=== PATIENT | male | born 1940 | race Hispanic/Latino ===

== ENCOUNTER → 2016-10-26 | Outpatient (REF) | payer MEDICARE, MEDICAID ==
[~2016-10-26] MED LIST: /SENOSTA PO; AMLO10TA PO; AMLO10TA2 PO; AMLO25TA PO; ASPI325T PO; ASPI32ECTA PO; ATOR40TA PO; DONETAB6 PO; GABA-282 PO; GABA-283 PO; GABA100C PO; GLIM4TAB PO; HUMA100I SC; INSUDET SC; INSUH10VL SC; INSUHUMDS SC; INSULADS SC; INSULANT SC; ISOS120T4 PO; ISOS20TA2 PO; ISOS60TA2 PO; LOSA100T PO; LOSA100T36 PO; METO50TA2 PO; NITR4TASL SL; OMEP20CA3 PO; PERCOCET PO; TAMS0.4C2 PO; TOPR25TA PO; TYLE325T5 PO; tylenol
== END ==
LOC: M SFHCLERA 13:46
PROVIDERS: ATTEND Family Medicine
DX: E11.42 Type 2 diabetes mellitus with diabetic polyneuropathy (principal); Z53.8 Procedure and treatment not carried out for other reasons

== ENCOUNTER 2016-11-09 17:59 | Inpatient (IN) | payer MEDICARE, MEDICAID ==
[~2016-11-09] VITALS: Ht 177.8 cm; Wt 89.1 kg
[2016-11-09 18:46] LABS: BASO # 0.1 K/mm3 (0.0-0.2); BASO % 1.1 % (0.0-1.0); EOS # 0.3 K/mm3 (0.0-0.50); EOS % 4.2 % (0.0-3.0); LARGE UNSTAINED CELL # 0.2 K/mm3 (0.0-0.4); LYMPH # 2.2 K/mm3 (1.5-4.5); LYMPH % 27.6 % (24.0-44.0); MEAN CORPUSCULAR HEMOGLOBIN 32.4 pg (27.0-33.0); MEAN CORPUSCULAR VOLUME 86.6 fl (80.0-96.0); MONO # 0.5 K/mm3 (0.0-0.8); NEUTROPHILS # 4.8 K/mm3 (1.8-7.7); NEUTROPHILS % 59.1 % (36.0-66.0); PLATELET COUNT, AUTOMATED 182 k/mm3 (150-450); RED CELL DISTRIBUTION WIDTH 12.9 % (11.5-14.5); WHITE BLOOD COUNT 8.1 K/mm3 (4.0-10.0)
[2016-11-09 18:50] LABS: MEAN CORPUSCULAR HGB CONC 37.4 g/dl (32.0-36.5)
[2016-11-09 19:07] LABS: CALCIUM LEVEL 8.8 MG/DL (8.8-10.2); CREATININE FOR GFR 1.82 MG/DL (0.70-1.30); GLOMERULAR FILTRATION RATE 38.9 (>42); MAGNESIUM LEVEL 2.4 MG/DL (1.8-2.4); PHOSPHORUS LEVEL 4.5 MG/DL (2.5-4.9); POTASSIUM SERUM 4.1 MEQ/L (3.5-5.1)
[2016-11-09] MEDS ORDERED: ASPI1TAB PO (20:40)
[2016-11-09] MEDS ORDERED: JANU100T PO (20:42)
[2016-11-09] MEDS ORDERED: TIZA2CAP3 PO (20:42)
[2016-11-09] MEDS ORDERED: RANO5TAB PO (20:42)
[2016-11-09] MEDS ORDERED: NS 500 ML IV ONE (20:45)
[2016-11-09] MEDS: GABAPENTIN 300 MG CAP PO SCH (21:00)
[2016-11-09] MEDS: HumaLOG INSULIN (NovoLOG) PER UNIT SC SCH (21:00)
[2016-11-09] MEDS ORDERED: GABAPENTIN 300 MG CAP PO ONE (21:00)
[2016-11-09] MEDS ORDERED: INSULANT SC (21:25)
[2016-11-09] MEDS ORDERED: GABA-282 PO (21:27)
[2016-11-09] MEDS ORDERED: ASPI81TA7 PO (21:28)
[2016-11-09] MEDS ORDERED: DEXTROSE 50% 50 ML SYRINGE IV PRN (22:15)
[2016-11-09] MEDS ORDERED: GLUCAGON FOR INJ 1 MG VIAL (J1610) SC PRN (22:15)
[2016-11-09] MEDS ORDERED: GLUCOSE 4 GM CHEW TABLET PO PRN (22:15)
--- NOTE | 2016-11-09 22:45 | HPEPDOC ---
General Date of Admission Nov 09, 2016 at 21:03 Primary Care Physician: GILLIAN MARTINS MD Attending Physician: LIZZETTE HANSEN MD Chief Complaint The patient is a 76-year-old male admitted with a reason for visit of Syncope. 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 Due to language barriers, his daughter and son were present in the room translated for him. He was sitting down in his chair when he started to get sweaty. His daughter helped him to the ground where he threw up and then lost consciousness. She became stiff, his eyes were closed, he did not bite his tongue, and he did not lose bowel or bladder function. He regained consciousness and had a neck/headache. This episode was similar to the past 6 episodes he has had in the past 2 years. This is the first time this has happened in the past year. He stated that he felt some left chest pressure but the EKG was unchanged from previous admissions. He has not been eating well for the past couple days, and his daughter reports a low food and water intake. He denied fever, night sweats, travel, sick contacts , and nausea. He did complain of chills which is not new. Home Medications Scheduled Aspirin (Aspirin) 81 Mg Tab, 81 MG PO DAILY, (Reported) Atorvastatin Calcium (Atorvastatin Calcium) 40 Mg Tab, 40 MG PO QHS, (Reported) Gabapentin (Gabapentin) 300 Mg Cap, 300 MG PO TID, (Reported) Insulin Aspart (Novolog) 100 U/Ml Inj, 0 SC ASDIRECTED, (Reported) AC Per Sliding Scale Insulin Glargine (Lantus) 1 Units/0.01 Ml Susp, 30 UNITS SC DAILY, (Reported) Insulin Glargine (Lantus) 1 Units/0.01 Ml Susp, 40 UNITS SC QHS, (Reported) Isosorbide Mononitrate (Isosorbide Mononitrate ER) 120 Mg Tab, 60 MG PO DAILY, ( Reported) Ranolazine (Ranexa) 500 Mg Renay, 500 MG PO DAILY, (Reported) Sitagliptin Phosphate (Juluvia) 100 Mg Tab, 100 MG PO DAILY, (Reported) Tizanidine Hydrochloride (Tizanidine HCl) 2 Mg Cap, 2 MG PO DAILY, (Reported) Allergies Coded Allergies: No Known Drug Allergy (Verified Allergy, Unknown, 01/19/13) Past Medical History Medical History Type 2 diabetes mellitus HTN Hyperlipidemia Diabetic neuropathy CAD (quintuple bypass, stent 1997) Hepatitis C Fatty liver stage F3-4 Syphillis Surgical History Open heart quintuple bypass 1997 Cholecystectomy 2005 Left foot partial amputation 2009 Amputated 4th right toe 1999 Right lower leg bypass 2002 Stents in both legs 2011 Bilater cataract 2011 Family History Significant Family History: Noncontributory Social History * Smoker: Denies Alcohol: Denies (Quit 20 years ago) Drugs: denies Recent Travel/Sick Contacts: Denies: Recent travel, Recent sick contacts Psychosocial History: No pertinent psych hx 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 Never smoker. No travel outside the or to the [facility]. Review of Symptoms Constitutional: Reports: Chills, Denies: Fever, Night Sweats Eyes: Denies: Vision change ENT: Reports: Head Aches (chronic) Skin: Denies: Rash, Lesions, Jaundice Pulmonary: Reports: Cough (chronic dry), Denies: Dyspnea, Pleuritic Chest Pain Cardiovascular: Reports: Chest Pain (left pressure), Denies: Palpitations Gastrointestinal: Reports: Vomiting, Abdominal Pain (chronic since gallbladder surgery), Denies: Nausea, Diarrhea, Constipation, Melena, Hematochezia Genitourinary: Denies: Frequency, Hematuria Musculoskeletal: Reports: Neck Pain (chronic) Neurological: Denies: Weakness, Numbness Psych: Reports: Mood Normal Physical Examination General Exam: Positive: Alert, Cooperative, No Acute Distress Eye Exam: Positive: PERRLA, EOMI ENT Exam: Positive: Atraumatic, Tongue Midline Neck Exam: Negative: JVD Chest Exam: Positive: Clear to auscultation, Normal air movement, Negative: Rales, Rhonchi, Wheezing Heart Exam: Positive: Rate Normal (diminished heart sounds), Negative: Gallops, Murmurs, Rubs Abdomen Exam: Positive: Normal bowel sounds, Soft, Negative: Tenderness Extremity Exam: Negative: Edema Skin Exam: Negative: Rash, Lesion Neuro Exam: Positive: Normal Speech Psych Exam: Positive: Mental status NL, Negative: Anxiety Vital Signs Vital Signs Date Time Temp Pulse Resp B/P Pulse Ox O2 Delivery O2 Flow Rate FiO2 11/09/16 20:46 Room Air 11/09/16 19:52 58 174/81 68 151/68 67 137/65 11/09/16 18:49 97.0 20 99 Laboratory Data Labs 24H Laboratory Tests 2 11/09/16 18:23: Anion Gap 7L, White Blood Count 8.1, Red Blood Count 4.29L, Hemoglobin 13.9L, Hematocrit 37.2L, Mean Corpuscular Volume 86.6, Mean Corpuscular Hemoglobin 32.4 , Mean Corpuscular Hemoglobin Concent 37.4H, Red Cell Distribution Width 12.9, Platelet Count 182, Neutrophils (%) (Auto) 59.1, Lymphocytes (%) (Auto) 27.6, Monocytes (%) (Auto) 6.0H, Eosinophils (%) (Auto) 4.2H, Basophils (%) (Auto) 1.1H, Neutrophils # (Auto) 4.8, Lymphocytes # (Auto) 2.2, Monocytes # (Auto) 0.5 , Eosinophils # (Auto) 0.3, Basophils # (Auto) 0.1, Blood Urea Nitrogen 21H, Creatinine 1.82H, Sodium Level 137, Potassium Level 4.1, Chloride Level 101, Carbon Dioxide Level 29, Calcium Level 8.8, Phosphorus Level 4.5, Total Creatine Kinase 284, Creatine Kinase MB 3.7H, Creatine Kinase MB Relative Index 1.30, Glomerular Filtration Rate 38.9L, Large Unclassified Cells # 0.2, Large Unclassified Cells % 2.0, Magnesium Level 2.4, Troponin I 0.04 11/09/16 18:28: Bedside Glucose (Misc Panel) 158H CBC/BMP Laboratory Tests 11/09/16 18:23 Calcium Level 8.8, Phosphorus Level 4.5, Total Creatine Kinase 284, Red Blood Count 4.29 L, Mean Corpuscular Volume 86.6, Mean Corpuscular Hemoglobin 32.4, Mean Corpuscular Hemoglobin Concent 37.4 H, Red Cell Distribution Width 12.9, Neutrophils (%) (Auto) 59.1, Lymphocytes (%) (Auto) 27.6, Monocytes (%) (Auto) 6.0 H, Eosinophils (%) (Auto) 4.2 H, Basophils (%) (Auto) 1.1 H, Neutrophils # ( Auto) 4.8, Lymphocytes # (Auto) 2.2, Monocytes # (Auto) 0.5, Eosinophils # (Auto ) 0.3, Basophils # (Auto) 0.1 Problems (1) Syncope and collapse Status: Acute Response to Treatment: Stable Discussed With: Patient, Family with Pt Consent Problem Text: History of syncope (6 times in the past 2 years). Cardiac enzymes not elevated, will continue to follow. EKG was unchanged from previous admission. Echo ordered to rule out cardiac cause. (2) Orthostatic hypotension Status: Chronic Response to Treatment: Stable Problem Text: History of orthostatic hypotension. Will administer fluids with close monitoring to avoid fluid overload. Orthostatics performed in ED, supine systolic was in the 170s, and standing in the 130s. (3) HTN (hypertension) Status: Chronic Response to Treatment: Stable Problem Text: Continue home dose of isosorbide mononitrate and losartan. (4) Acute kidney injury Status: Acute Problem Text: Likely due to decreased fluid intake the past two days. Given 500mL bolus in the ER, will monitor throughout the night. Patient is eating and drinking well. Just had a burger and drink from [employer] in the ED. This has stayed down without symptoms, as a matter of fact he is feeling a little better after finishing his meal. Clinically he looks euvolemic. (5) PVD (peripheral vascular disease) Status: Chronic Problem Text: Continue home dose of aspirin and statin. (6) History of coronary artery disease Status: Chronic Problem Text: Status post quintuple bypass and cardiac stent 1997. ECG did not show any acute changes since last admission. Will order Echo. (7) Diabetes Status: Chronic Response to Treatment: Stable Problem Text: Starting sliding scale insulin and continuing his home dose of Levemir. (8) Hepatitis C Status: Chronic Response to Treatment: Improving Problem Text: Continue home dose of Harvoni. (9) Hyperlipidemia Status: Chronic Problem Text: Continue home dose of statin. (10) Neuropathy Status: Chronic Response to Treatment: Stable Problem Text: Continue home dose of gabapentin. Plan / VTE VTE Prophylaxis Ordered?: Yes (Lovenox) GME ATTESTATION GME ATTESTATION My preceptor for this patient encounter was physically present in the building during the encounter and was fully available. As needed, all aspects of the patient interview, examination, medical decision making process, and medical care plan development were reviewed and approved by the preceptor. Preceptor is aware and concurs with the plan as stated in the body of this note and will attest to such by his/her cosignature. DARCY ONEAL DO Nov 09, 2016 22:45
[2016-11-09] MEDS ORDERED: NS 1,000 ML IV SCH (23:00)
[2016-11-09] MEDS: LEVEMIR (INSULIN DETEMIR) 1 UNITS/0.01ML SC SCH (23:37)
[2016-11-09] MEDS: ATORVASTATIN 20 MG TAB PO SCH (23:37)
[2016-11-10] VITALS (8 sets, daily range): BP systolic 117–173; BP diastolic 59–146
[2016-11-10 03:41] LABS: CALCIUM LEVEL 8.2 MG/DL (8.8-10.2); CREATININE FOR GFR 1.62 MG/DL (0.70-1.30); GLOMERULAR FILTRATION RATE 44.4 (>42); MAGNESIUM LEVEL 2.1 MG/DL (1.8-2.4); POTASSIUM SERUM 3.5 MEQ/L (3.5-5.1)
[2016-11-10 04:56] LABS: MEAN CORPUSCULAR HEMOGLOBIN 32.2 pg (27.0-33.0); MEAN CORPUSCULAR VOLUME 86.5 fl (80.0-96.0); RED CELL DISTRIBUTION WIDTH 12.8 % (11.5-14.5); WHITE BLOOD COUNT 8.2 K/mm3 (4.0-10.0)
[2016-11-10 04:58] LABS: MEAN CORPUSCULAR HGB CONC 36.4 g/dl (32.0-36.5)
[2016-11-10] MEDS: HumaLOG INSULIN (NovoLOG) PER UNIT SC SCH ×4 (08:00→21:00)
[2016-11-10] MEDS ORDERED: POTASSIUM CHLORIDE 10 MEQ SR TABLET PO ONE (08:00)
[2016-11-10] MEDS ORDERED: LEVEMIR (INSULIN DETEMIR) 1 UNITS/0.01ML SC SCH (09:00)
[2016-11-10] MEDS ORDERED: LOSARTAN 25 MG TAB PO SCH (09:00)
[2016-11-10] MEDS ORDERED: SITagliptin 50 MG TAB (JANUVIA) PO SCH (09:00)
[2016-11-10] MEDS ORDERED: HARVONI PO SCH (09:00)
[2016-11-10] MEDS ORDERED: ISOSORBIDE MON. (IMDUR) 60 MG XR TAB PO SCH (09:00)
[2016-11-10] MEDS: GABAPENTIN 300 MG CAP PO SCH ×3 (09:11→21:35)
[2016-11-10] MEDS: ASPIRIN 81 MG ENTERIC TAB PO SCH (09:11)
[2016-11-10] MEDS: RANOLAZINE 500 MG ER TAB PO SCH (09:13)
[2016-11-10] MEDS: ENOXAPARIN 30 MG/0.3 ML SYR (J1650) SC SCH (09:13)
--- NOTE | 2016-11-10 09:16 | ECGEPIP ---
Stationary ECG Study [facility] - ED Test Date: 2016-11-09 Pat Name: DUSTIN ONEAL Department: Room: - Gender: M Brim Cutter: lj : 1940 Requested By: Karl Jaimes Order Number: [id number] Reading MD: Karl Mclaughlin Measurements Intervals [place] Rate: 57 P: 77 NM: 184 QRS: -47 QRSD: 123 T: 90 QT: 471 QTc: 460 Interpretive Statements SINUS BRADYCARDIA LEFT AXIS DEVIATION POSSIBLE ANTERIOR MYOCARDIAL INFARCTION, OF INDETERMINATE AGE SIMILAR TO PRIOR ON SAME DATE Electronically Signed On 11-10-2016 9:16:30 EDT by Karl Mclaughlin
[2016-11-10] MEDS: LOSARTAN 25 MG TAB PO SCH ×2 (12:54→21:35)
--- NOTE | 2016-11-10 14:26 | REP ---
Clinical: Headache and syncope. Comparison: 11/28/2015 . 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 The ventricles and sulci are symmetric. Iverson-white differentiation is maintained. There is no evidence for acute intracranial hemorrhage, mass/mass effect, pathology or infarction. No extra-axial fluid collection. Calvarium is intact. Paranasal sinuses and mastoid air cells are clear. Impression: Age related atrophy and microvascular ischemic changes. No acute intracranial hemorrhage, infarction, or mass/mass effect. Signed by Osmani Sylvester MD 11/10/2016 02:17 P
[2016-11-10] MEDS ORDERED: NS 1,000 ML IV SCH (16:00)
--- NOTE | 2016-11-10 16:46 | IPN ---
DATE: 11/10/2016 Patient seen and examined. Denies any chest pain, pressure, or discomfort. Denies any lightheadedness. Denies any fever, chills, abdominal pain. Currently comfortable. Reported back to baseline. VITAL SIGNS: Temperature 98, pulse 57. Orthostatics: supine 133/66, sitting 121/65, standing 117/59. Pulse oximetry 96% on room air. LABORATORY DATA: WBC 8.2, hemoglobin and hematocrit 11.9/32.7, platelets 157. Chemistry: Sodium 140, potassium 3.5, chloride 105, bicarbonate 27, BUN 20, creatinine 1.6. Cardiac enzymes negative times three. PHYSICAL EXAMINATION: GENERAL: Patient alert and oriented times three, in no acute distress. HEENT: Normocephalic, atraumatic. PULMONARY: Bilaterally clear to auscultation. CARDIAC: Regular rate and rhythm, normal S1, S2. ABDOMEN: Soft, nontender, nondistended. EXTREMITIES: No edema bilateral lower extremities. ASSESSMENT AND PLAN: This is a 76-year-old [place]eg[place]e gentleman with underlying medical history of coronary artery bypass graft (CABG), coronary artery disease, also stent placement, hepatitis C, hypertension, and also diabetes with history of syncopal episode with orthostasis, presented with a syncopal episode, orthostatic positive. 1. Syncope with orthostatic hypotension. Cardiac enzymes appreciated. Telemetry appreciated. Case discussed with Dr. Patel. As per Dr. Patel, patient likely has autonomic neuropathy secondary to longstanding diabetes. Will obtain echocardiogram. Telemetry monitoring. Discontinuing vasodilator blood pressure medications. Monitor orthostasis. IV fluids for hydration. Currently patient on losartan. Imdur has been discontinued. CT head appreciated. Physical therapy. Fall precautions. Followup echo. 2. Orthostatic hypotension. Refer to above. Withholding Imdur. Case discussed with Dr. Patel. Patient likely has autonomic neuropathy secondary to longstanding diabetes. Follow orthostatic vital signs and IV fluids for hydration. 3. Hypertension. Imdur discontinued. Losartan on low dose. Will tolerate elevated blood pressure up to 170s and 160s when the patient is supine as per Dr. Patel. 4. Acute on chronic renal insufficiency. Likely due to fluid dehydration. IV fluids for hydration. Monitor BUN and creatinine, returning to baseline. 5. Peripheral vascular disease. Aspirin and statin. 6. History of coronary artery disease with coronary artery bypass graft (CABG). Telemetry monitoring, echocardiogram. Cardiac enzymes negative times three. Continue aspirin and statin. 7. Diabetes. Insulin basal bolus. Followup finger sticks. 8. Hepatitis C. Outpatient followup. Continue home dose Harvoni. 9. Dyslipidemia. Continue statin. 10. Diabetic neuropathy. Continue Neurontin. 11. Deep venous thrombosis (DVT) prophylaxis. Lovenox subcutaneous. DISPOSITION: Pending physical therapy, echocardiogram, clinical improvement.
--- NOTE | 2016-11-10 19:34 | ECHO ---
DATE OF PROCEDURE: 11/10/2016 REFERRING PHYSICIAN: Dr. Harden INDICATION: Syncope. HEIGHT: 178 cm WEIGHT: 89 kg DIMENSIONS: IVS: 1.4 LV: 4.1 LVPW: 1.3 LA: 4.3 Aorta: 3.9 FINDINGS: The study is of acceptable technical quality. Left ventricle is of normal size and normal systolic function with estimated ejection fraction (EF) around 65%. Mild left ventricular hypertrophy (LVH) is present. Right ventricle is normal size and systolic function. Left atrium appears at least mildly enlarged. Right atrium is probably normal. Aortic valve is minimally sclerotic, but has normal mobility. There are also mild degenerative abnormalities of mitral valve with minimal mitral annular calcifications. Tricuspid and pulmonic valves appear normal even though pulmonic valve was not well seen. No pericardial effusion is noted. Inferior vena cava is normal size. Aortic root is borderline dilated measuring 3.9 cm. Aortic arch and abdominal aorta were not visualized. Doppler interrogation reveals no aortic stenosis or insufficiency. There is trace mitral insufficiency. Tricuspid valve is functionally competent. Pulmonic valve was not well seen. Mitral inflow pattern and tissue Doppler imaging of mitral annulus reveal grade 1 diastolic dysfunction. CONCLUSIONS: 1. Study is of acceptable technical quality. 2. Normal left ventricle (LV) size with mild LVH and preserved LV systolic function. Grade 1 diastolic dysfunction. 3. No significant valvular disease. 4. Normal central venous pressure. 5. Unable to estimate pulmonary artery pressure. 6. Mildly dilated aortic root (3.9 cm). COMMENT: Overall consistent with hypertensive heart disease. No obvious findings to explain syncopal event. INDICATION MTDD
[2016-11-10] MEDS: ATORVASTATIN 20 MG TAB PO SCH (21:34)
[2016-11-10] MEDS: LEVEMIR (INSULIN DETEMIR) 1 UNITS/0.01ML SC SCH (21:34)
[2016-11-11] VITALS (8 sets, daily range): BP systolic 154–184; BP diastolic 71–82
[2016-11-11 05:44] LABS: MEAN CORPUSCULAR HEMOGLOBIN 30.3 pg (27.0-33.0); MEAN CORPUSCULAR HGB CONC 34.4 g/dl (32.0-36.5); MEAN CORPUSCULAR VOLUME 87.8 fl (80.0-96.0); WHITE BLOOD COUNT 6.9 K/mm3 (4.0-10.0)
[2016-11-11 06:03] LABS: CALCIUM LEVEL 8.5 MG/DL (8.8-10.2); CREATININE FOR GFR 1.43 MG/DL (0.70-1.30); GLOMERULAR FILTRATION RATE 51.3 (>42); POTASSIUM SERUM 3.8 MEQ/L (3.5-5.1)
[2016-11-11] MEDS: HumaLOG INSULIN (NovoLOG) PER UNIT SC SCH ×4 (07:30→21:00)
[2016-11-11] MEDS: LOSARTAN 25 MG TAB PO SCH ×2 (08:59→22:00)
[2016-11-11] MEDS: ENOXAPARIN 30 MG/0.3 ML SYR (J1650) SC SCH (08:59)
[2016-11-11] MEDS: ASPIRIN 81 MG ENTERIC TAB PO SCH (08:59)
[2016-11-11] MEDS: GABAPENTIN 300 MG CAP PO SCH ×3 (08:59→21:59)
[2016-11-11] MEDS: RANOLAZINE 500 MG ER TAB PO SCH (08:59)
[2016-11-11] MEDS: LEVEMIR (INSULIN DETEMIR) 1 UNITS/0.01ML SC SCH (09:26)
--- NOTE | 2016-11-11 19:00 | IPN ---
DATE: 11/11/2016 Patient is seen and examined. No acute events overnight. Patient able to ambulate. Denies any chest pain, pressure, or discomfort. Denies any lightheadedness, fevers, or chills. Denies any cough. VITAL SIGNS: Temperature 97.5, pulse 69, respirations 18, blood pressure 166/82, pulse oximetry 99% on room air. LABORATORY DATA: WBC 6.9, hemoglobin and hematocrit 11.8/34.1, platelets 149. Chemistry: Sodium 144, potassium 3.8, chloride 111, bicarbonate 28, BUN 18, creatinine 1.4. PHYSICAL EXAMINATION: GENERAL: Patient alert and oriented times three, in no acute distress. HEENT: Normocephalic, atraumatic. PULMONARY: Bilaterally clear to auscultation. CARDIAC: Regular rate and rhythm with normal S1, S2. ABDOMEN: Soft, nontender, nondistended. EXTREMITIES: No edema of bilateral lower extremities. ASSESSMENT AND PLAN: This is a 76-year-old male patient from [place] with underlying medical history of coronary artery disease with coronary artery bypass graft (CABG) with stent placement as well, hepatitis C, hypertension, and also diabetes with history of syncopal episode and orthostasis, who presented with syncope and orthostatic positive. 1. Syncope with orthostatic hypotension. Cardiac enzymes appreciated. Telemetry appreciated. Case discussed with Dr. Patel. As per Dr. Patel, patient's blind lacer, patient likely has autonomic neuropathy secondary to longstanding diabetes. Echocardiogram appreciated with no acute pathology. Telemetry appreciated. Discontinue vasodilator as per cardiology. Monitor for orthostasis. IV fluids initially provided. Patient currently on losartan. Imdur has been discontinued. Will tolerate systolic blood pressure of 150-160 given patient's orthostatic hypotension. CT of the head appreciated. Physical therapy. Fall precautions. 2. Orthostatic hypotension. Refer to above. Case discussed with Dr. Patel. 3. Hypertension. Continue losartan 50 mg by mouth twice a day and adjust as needed. Followup kidney function. 4. Acute on chronic renal insufficiency. Currently returning to baseline. IV hydration initially given. Followup blood urea nitrogen (BUN) and creatinine. 5. Peripheral vascular disease. Continue aspirin and statin. 6. History of coronary artery disease with coronary artery bypass graft (CABG). Telemetry monitoring, echocardiogram appreciated. Cardiac enzymes negative times three. Continue aspirin, statin, and losartan. 7. Diabetes. Basal bolus insulin. Insulin dosage has been decreased given hypoglycemia. Followup fingersticks. 8. Hepatitis C. Outpatient followup. Continue Harvkait. 9. Dyslipidemia. Continue statin. 10. Diabetic neuropathy. Continue Neurontin. 11. Deep venous thrombosis (DVT) prophylaxis. Lovenox subcutaneous. DISPOSITION PLANNING: Pending physical therapy, clinical improvement, likely discharge over the next 24 hours.
[2016-11-11] MEDS ORDERED: LEVEMIR (INSULIN DETEMIR) 1 UNITS/0.01ML SC SCH (21:00)
[2016-11-11] MEDS: ATORVASTATIN 20 MG TAB PO SCH (21:59)
[2016-11-12 04:48] VITALS: BP_SYST 146; BP_SYST 151; BP_SYST 163; BP_DIAS 69; BP_DIAS 74; BP_DIAS 75
[2016-11-12 06:17] LABS: MEAN CORPUSCULAR HGB CONC 35.1 g/dl (32.0-36.5); MEAN CORPUSCULAR VOLUME 85.4 fl (80.0-96.0); RED CELL DISTRIBUTION WIDTH 12.7 % (11.5-14.5); WHITE BLOOD COUNT 7.6 K/mm3 (4.0-10.0)
[2016-11-12 06:22] LABS: CALCIUM LEVEL 8.9 MG/DL (8.8-10.2); CREATININE FOR GFR 1.43 MG/DL (0.70-1.30); GLOMERULAR FILTRATION RATE 51.3 (>42); POTASSIUM SERUM 4.1 MEQ/L (3.5-5.1)
[2016-11-12 08:00] VITALS: BP 158/76
[2016-11-12] MEDS ORDERED: LOSARTAN 25 MG TAB PO SCH (09:00)
[2016-11-12] MEDS: HumaLOG INSULIN (NovoLOG) PER UNIT SC SCH ×2 (09:03→11:57)
[2016-11-12] MEDS: LEVEMIR (INSULIN DETEMIR) 1 UNITS/0.01ML SC SCH (09:04)
[2016-11-12] MEDS: GABAPENTIN 300 MG CAP PO SCH (09:05)
[2016-11-12] MEDS: RANOLAZINE 500 MG ER TAB PO SCH (09:05)
[2016-11-12] MEDS: ENOXAPARIN 30 MG/0.3 ML SYR (J1650) SC SCH (09:05)
[2016-11-12] MEDS: ASPIRIN 81 MG ENTERIC TAB PO SCH (09:05)
[2016-11-12] MEDS ORDERED: COZA1TAB PO (12:40)
--- NOTE | 2016-11-13 01:26 | DSES ---
DATE OF ADMISSION: 11/09/2016 DATE OF DISCHARGE: 11/12/2016 PRIMARY CARE PROVIDER: Dr. Mounika Gomez MEDICAL BILLING MANAGER: Dr. Patel FINAL DIAGNOSES: 1. Syncope with orthostatic hypotension. 2. Underlying history of hypertension. 3. Acute on chronic renal insufficiency. 4. Peripheral vascular disease. 5. History of coronary artery disease. 6. History of type 2 diabetes. 7. Hepatitis C. 8. Dyslipidemia. 9. Diabetic neuropathy. 10. Possible diabetic autonomic neuropathy. HISTORY OF PRESENT ILLNESS: This is a 76-year-old Filipino male patient with underlying medical history of coronary artery disease with coronary artery bypass graft (CABG) and stent placement, hepatitis C, hypertension, diabetes, dyslipidemia, diabetic neuropathy, fatty liver. Patient has been having recurrent episode of syncope. Patient presents with passing out around 4 p.m. on the day of admission. On admission patient's daughter was translating. Patient was sitting down in a chair and started to get sweaty, and patient's daughter helped him to the ground, where he threw up and lost consciousness, became stiff, and his eyes were closed. Did not bite his tongue. Did not lose his bowel or bladder function. Patient regained consciousness and had a mild headache. Similar episode has been happening for the past 2 years. Patient did report some chest pressure on admission with no EKG changes. Patient reported possibility of dehydration and water intake. Denies any chest pain, pressure, or discomfort. As per family, patient recently has traveled a bit and has been drinking less fluids because of the commute and travel. HOSPITAL COURSE: Patient was admitted to the hospital. Kidney function was appreciated. Echocardiogram was done. Telemetry monitoring, cardiac enzymes, physical therapy. Patient intravenous (IV) fluids were given. Kidney function returned to baseline. Patient also reported back to baseline. Passed physical therapy. Orthostatic initially positive. Blood pressure medication was on hold. Case was discussed with elementary assistant principal, Dr. Patel. As per Dr. Patel, likely etiology is autonomic nerve dysfunction secondary to patient's long-term diabetes. Will elect for recommend discontinuing any vasodilatory blood pressure medication, including amlodipine, isosorbide dinitrate. Elect to keep the patient on losartan for now. Titrate as needed. Monitor orthostatic vital signs. Will tolerate elevated blood pressure in the 150s temporarily. Outpatient followup with primary care provider and elementary assistant principal. Patient currently feels comfortable. Able to ambulate. Back to baseline. Ready for discharge for further care as outpatient. VITAL SIGNS: Temperature 97.8, pulse 62, respirations 18, blood pressure 158/76, pulse oximetry 100% on room air. LABORATORY: WBC 7.6, hemoglobin and hematocrit 13.2/37.5, platelets 168. Chemistry: Sodium 141, potassium 4.1, chloride 105, bicarbonate 28, BUN 17, creatinine 1.4. DISCHARGE MEDICATIONS: - losartan 75 mg by mouth daily - aspirin 81 mg by mouth daily - atorvastatin 40 mg by mouth at bedtime - gabapentin 300 mg by mouth three times a day - insulin pre meal as directed - Lantus 30 units subcutaneous daily, 40 mg subcutaneous at bedtime - Ranexa 500 mg by mouth daily - Januvia 100 mg by mouth daily - tizanidine 2 mg by mouth daily DISCHARGE INSTRUCTIONS: Patient is instructed to followup with fingersticks. Adjust insulin as needed. Followup blood pressure. Return to the hospital if condition worsens. Followup with primary care provider in 7 days, elementary assistant principal in 2 weeks for further care as outpatient.
== END 2016-11-12 13:46 | disposition home health service (06) | DRG 74 ==
LOC: M ED 17:59 → M ED INP 21:03 → M PCU 11-10 13:28
PROVIDERS: ADMIT Internal Medicine; ATTEND Hospitalist
DX: E11.43 Type 2 diabetes mellitus with diabetic autonomic (poly)neuropathy (principal); N17.9 Acute kidney failure, unspecified; I95.1 Orthostatic hypotension; I10 Essential (primary) hypertension; E78.5 Hyperlipidemia, unspecified; I73.9 Peripheral vascular disease, unspecified; I25.10 Atherosclerotic heart disease of native coronary artery without angina pectoris; B19.20 Unspecified viral hepatitis C without hepatic coma; Z95.5 Presence of coronary angioplasty implant and graft; Z79.4 Long term (current) use of insulin; Z79.82 Long term (current) use of aspirin; Z79.899 Other long term (current) drug therapy; K76.0 Fatty (change of) liver, not elsewhere classified; Z90.49 Acquired absence of other specified parts of digestive tract

== ENCOUNTER → 2016-11-18 | Outpatient (REF) | payer MEDICARE, MEDICAID ==
[~2016-11-18] MED LIST changes: +ASPI1TAB PO; +ASPI81TA7 PO; +COZA1TAB PO; +JANU100T PO; +RANO5TAB PO; +TIZA2CAP3 PO
[2016-11-18 13:19] LABS: ALBUMIN 3.9 GM/DL (3.2-5.2); CALCIUM LEVEL 9.8 MG/DL (8.8-10.2); CREATININE FOR GFR 1.39 MG/DL (0.70-1.30); PHOSPHORUS LEVEL 3.9 MG/DL (2.5-4.9); POTASSIUM SERUM 4.7 MEQ/L (3.5-5.1)
== END ==
LOC: M SFHCLERA 10:37
PROVIDERS: ATTEND Family Medicine
DX: Z09 Encounter for follow-up examination after completed treatment for conditions other than malignant neoplasm (principal); N18.3 Chronic kidney disease, stage 3 (moderate); E11.42 Type 2 diabetes mellitus with diabetic polyneuropathy; B18.2 Chronic viral hepatitis C; B35.1 Tinea unguium
CPT/HCPCS: 80069; 83036; G0463

== ENCOUNTER → 2016-12-01 | Outpatient (REF) | payer MEDICARE, MEDICAID ==
[2016-12-01 14:04] LABS: ALBUMIN 3.6 GM/DL (3.2-5.2); CALCIUM LEVEL 8.5 MG/DL (8.8-10.2); CREATININE FOR GFR 1.52 MG/DL (0.70-1.30); GLOMERULAR FILTRATION RATE 47.8 (>42); PHOSPHORUS LEVEL 3.8 MG/DL (2.5-4.9); POTASSIUM SERUM 4.2 MEQ/L (3.5-5.1)
== END ==
LOC: M LAB REF 13:19
PROVIDERS: ATTEND Family Medicine
DX: I10 Essential (primary) hypertension (principal)

== ENCOUNTER → 2016-12-03 | Outpatient (REF) | payer MEDICARE, MEDICAID ==
[2016-12-03 16:17] LABS: INR 1.08
[2016-12-03 16:40] LABS: ALBUMIN 3.7 GM/DL (3.2-5.2); ALBUMIN/GLOBULIN RATIO 0.88 (1.00-1.93); BILIRUBIN,TOTAL 0.4 MG/DL (0.2-1.0); CALCIUM LEVEL 9.2 MG/DL (8.8-10.2); CREATININE FOR GFR 1.5 MG/DL (0.70-1.30); GLOMERULAR FILTRATION RATE 48.6 (>42); POTASSIUM SERUM 4.2 MEQ/L (3.5-5.1); TOTAL PROTEIN 7.9 GM/DL (6.4-8.2)
[2016-12-08 08:07] LABS: ALT 37 IU/L (0-55); GGT 21 IU/L (0-65); HAPTOGLOBIN 173 mg/dL (34-200); TOTAL BILIRUBIN 0.3 mg/dL (0.0-1.2)
[2016-12-08 14:15] LABS: HEPATITIS C QUANTITATION HCV Not Detected IU/mL (.)
== END ==
LOC: M SFHCPLAZ 12:41
PROVIDERS: ATTEND Internal Medicine Infectious Disease
DX: B18.2 Chronic viral hepatitis C (principal)
CPT/HCPCS: 36415; 80053; 82105; 82172; 82247; 82977; 83010; 83883; 85610; 87522; G0463

== ENCOUNTER → 2016-12-29 | Outpatient (CLI) | payer MEDICARE, MEDICAID ==
--- NOTE | 2016-12-29 10:45 | REP ---
LIMITED ABDOMINAL ULTRASOUND: HISTORY: Chronic hepatitis. COMPARISON: 12/20/2012 The patient is status post cholecystectomy. The common bile duct measures 5.7 mm. There is fatty infiltration of the liver. The pancreas is not seen due to overlying bowel gas. The right kidney is normal in echogenicity. The right kidney measures 6 cm in transverse x 5.5 cm in AP x 12 cm in cephalocaudal dimensions. There is no hydronephrosis or mass. IMPRESSION: 1. The patient is status post cholecystectomy. 2. Fatty infiltration of the liver. Signed by Francisco Javier Kaufman MD 12/29/2016 11:10 A
== END ==
LOC: M RAD 07:53
PROVIDERS: ATTEND Nurse Practitioner Family
DX: B18.2 Chronic viral hepatitis C (principal); K76.0 Fatty (change of) liver, not elsewhere classified

== ENCOUNTER → 2017-03-18 | Outpatient (REF) | payer MEDICARE, MEDICAID ==
[~2017-03-18] MED LIST changes: +ASPI1TAB15 PO; +ASPI325T24 PO; -ASPI32ECTA PO; -ASPI81TA7 PO; -ATOR40TA PO; +ATOR40TA75 PO
[2017-03-18 19:55] LABS: MEAN CORPUSCULAR HGB CONC 34.4 g/dl (32.0-36.5); MEAN CORPUSCULAR VOLUME 87.2 fl (80.0-96.0); RED CELL DISTRIBUTION WIDTH 13.3 % (11.5-14.5); WHITE BLOOD COUNT 6.7 K/mm3 (4.0-10.0)
[2017-03-18 20:07] LABS: ALBUMIN 3.8 GM/DL (3.2-5.2); ALBUMIN/GLOBULIN RATIO 0.95 (1.00-1.93); BILIRUBIN,TOTAL 0.5 MG/DL (0.2-1.0); CALCIUM LEVEL 9.3 MG/DL (8.8-10.2); CREATININE FOR GFR 1.69 MG/DL (0.70-1.30); GLOMERULAR FILTRATION RATE 42.2 (>42); POTASSIUM SERUM 4.9 MEQ/L (3.5-5.1); TOTAL PROTEIN 7.8 GM/DL (6.4-8.2)
[2017-03-24 14:17] LABS: HEPATITIS C QUANTITATION HCV Not Detected IU/mL (.)
== END ==
LOC: M SFHCLERA 11:59
PROVIDERS: ATTEND Family Medicine
DX: R77.2 Abnormality of alphafetoprotein (principal); I10 Essential (primary) hypertension; I25.10 Atherosclerotic heart disease of native coronary artery without angina pectoris; E11.42 Type 2 diabetes mellitus with diabetic polyneuropathy
CPT/HCPCS: 80053; 82105; 83036; 85027; 87522; G0463

== ENCOUNTER 2017-06-02 18:51 | Emergency (ER) | payer MEDICARE, MEDICAID ==
[~2017-06-02] VITALS: Ht 180.3 cm; Wt 92.9 kg
[2017-06-02] MEDS ORDERED: DONEPEZIL (19:12)
[2017-06-02] MEDS ORDERED: TRAM50TA2 (19:12)
[2017-06-02] MEDS ORDERED: HYDR25TAB (19:12)
[2017-06-02] MEDS ORDERED: ISOS60TA2 (19:12)
[2017-06-02] MEDS ORDERED: ENALAPRIL MALEATE 5 MG TAB PO ONE (20:15)
[2017-06-02 20:28] LABS: INR 1.05
[2017-06-02 20:32] LABS: BASO # 0.1 10^3/uL (0.0-0.2); EOS # 0.5 10^3/uL (0.0-0.50); EOS % 5.2 % (0.0-3.0); IMMATURE GRANULOCYTE % 0.2 % (0-0); LYMPH # 2.8 10^3/uL (1.5-4.5); LYMPH % 32.8 % (24.0-44.0); MEAN CORPUSCULAR HEMOGLOBIN 29.5 pg (27.0-33.0); MEAN CORPUSCULAR HGB CONC 34.2 g/dl (32.0-36.5); MEAN CORPUSCULAR VOLUME 86.2 fl (80.0-96.0); MONO # 0.7 10^3/uL (0.0-0.8); MONO % 8.2 % (0.0-5.0); NEUTROPHILS # 4.6 10^3/uL (1.8-7.7); NEUTROPHILS % 52.6 % (36.0-66.0); PLATELET COUNT, AUTOMATED 211 10^3/uL (150-450); RED CELL DISTRIBUTION WIDTH 13.4 % (11.5-14.5); WHITE BLOOD COUNT 8.7 10^3/uL (4.0-10.0)
[2017-06-02 20:43] LABS: ANION GAP 5 MEQ/L (8-16); BLOOD UREA NITROGEN 19 MG/DL (7-18); CALCIUM LEVEL 9.4 MG/DL (8.8-10.2); CARBON DIOXIDE LEVEL 31 MEQ/L (21-32); CHLORIDE LEVEL 100 MEQ/L (98-107); CREATININE FOR GFR 1.63 MG/DL (0.70-1.30); GLUCOSE, FASTING 193 MG/DL (83-110); POTASSIUM SERUM 3.8 MEQ/L (3.5-5.1); SODIUM LEVEL 136 MEQ/L (136-145)
[2017-06-02 21:05] VITALS: BP 198/106
[2017-06-02] MEDS ORDERED: hydrALAZINE INJ 20 MG/ML VIAL IV STA (21:34)
[2017-06-02] MEDS ORDERED: hydrALAZINE INJ 20 MG/ML VIAL As Ordered ONE (21:39)
[2017-06-03 02:22] VITALS: BP 106/64
--- NOTE | 2017-06-03 08:34 | REP ---
Clinical: Chest pain. Comparison: 11/09/2016. Findings: Examination is limited by portable technique and underpenetration which accentuate the pulmonary vasculature and interstitium. As such, mild interstitial edema cannot be excluded. Underlying chronic changes are suggested and trace basilar atelectasis is suspected. No definite effusion. No pneumothorax. Mediastinum and cardiac silhouette are stable. Skeletal structures are intact. Evidence for prior sternotomy noted. Impression: Cannot exclude subtle interstitial edema or trace basilar atelectasis. Signed by Osmani Sylvester MD 06/03/2017 08:26 A
--- NOTE | 2017-06-03 13:51 | ECGEPIP ---
Stationary ECG Study [facility] - ED Test Date: 2017-06-02 Pat Name: DUSTIN ONEAL Department: Room: - Gender: M Fitness Floor Attendant: : 1940 Requested By: DWIGHT Rojo Order Number: [id number] Reading MD: Karl Mclaughlin Measurements Intervals [place] Rate: 76 P: 53 [place]: 194 QRS: -47 QRSD: 127 T: 101 QT: 409 QTc: 463 Interpretive Statements SINUS RHYTHM LEFT AXIS DEVIATION POSSIBLE ANTERIOR MYOCARDIAL INFARCTION, OF INDETERMINATE AGE MODERATE T-WAVE ABNORMALITY, CONSIDER LATERAL ISCHEMIA SIMILAR TO 11/09/16 Electronically Signed On 06-03-2017 13:51:18 EST by Karl Mclaughlin
--- NOTE | 2017-06-03 13:54 | ECGEPIP ---
Stationary ECG Study [facility] - ED Test Date: 2017-06-02 Pat Name: DUSTIN ONEAL Department: Room: - Gender: M Neurological Physiotherapist: : 1940 Requested By: GILMAR JOYNER Order Number: [id number] Reading MD: Karl Mclaughlin Measurements Intervals [place] Rate: 60 P: 60 [place]: 150 QRS: -46 QRSD: 126 T: 110 QT: 480 QTc: 482 Interpretive Statements SINUS RHYTHM WITH OCCASIONAL VENTRICULAR PREMATURE COMPLEXES MARKED LEFT AXIS DEVIATION LEFT VENTRICULAR HYPERTROPHY AND ST-T CHANGE NSTTW ABNORMALITIES SIMILAR TO 07/09/15 Electronically Signed On 06-03-2017 13:54:02 EST by Karl Mclaughlin
--- NOTE | 2017-06-04 07:26 | ECGEPIP ---
Stationary ECG Study [facility] - ED Test Date: 2017-06-03 Pat Name: DUSTIN ONEAL Department: Room: - Gender: M [employer] Machine Filler: oksana : 1940 Requested By: GILMAR JOYNER Order Number: [id number] Reading MD: Karl Mclaughlin Measurements Intervals [place] Rate: 63 P: 82 NE: 180 QRS: -48 QRSD: 130 T: 89 QT: 453 QTc: 465 Interpretive Statements SINUS RHYTHM LEFT AXIS DEVIATION POSSIBLE ANTERIOR MYOCARDIAL INFARCTION, OF INDETERMINATE AGE POSSIBLE PRIOR INFERIOR MYOCARDIAL INFARCTION SIMILAR TO 06/02/17 Electronically Signed On 06-04-2017 7:26:16 EST by Karl Mclaughlin
== END 2017-06-03 02:29 | disposition home or self-care (01) ==
LOC: M ED 18:51
DX: I10 Essential (primary) hypertension (principal); R07.89 Other chest pain; E11.9 Type 2 diabetes mellitus without complications; I25.9 Chronic ischemic heart disease, unspecified; E78.5 Hyperlipidemia, unspecified; Z79.899 Other long term (current) drug therapy; Z79.82 Long term (current) use of aspirin; Z79.4 Long term (current) use of insulin
CPT/HCPCS: 71010; 80048; 82550; 82553; 84484; 85025; 85610; 85730; 93005; 93041; 94760; 96374; 99285; G0463

== ENCOUNTER → 2017-07-22 | Outpatient (REF) | payer MEDICARE, MEDICAID ==
[2017-07-22 16:10] LABS: ALBUMIN/GLOBULIN RATIO 1.03 (1.00-1.93); ALKALINE PHOSPHATASE 69 U/L (45-117); ALT/SGPT 31 U/L (12-78); ANION GAP 6 MEQ/L (8-16); AST/SGOT 22 U/L (7-37); BILIRUBIN,TOTAL 0.4 MG/DL (0.2-1.0); BLOOD UREA NITROGEN 15 MG/DL (7-18); CALCIUM LEVEL 9.1 MG/DL (8.8-10.2); CARBON DIOXIDE LEVEL 29 MEQ/L (21-32); CHLORIDE LEVEL 104 MEQ/L (98-107); CREATININE FOR GFR 1.63 MG/DL (0.70-1.30); GLUCOSE, FASTING 126 MG/DL (83-110); POTASSIUM SERUM 4.5 MEQ/L (3.5-5.1); SODIUM LEVEL 139 MEQ/L (136-145); TOTAL PROTEIN 7.9 GM/DL (6.4-8.2)
[2017-07-22 16:22] LABS: INR 1.02; PROTHROMBIN TIME 13.5 SECONDS (12.4-14.5)
[2017-07-23 09:18] LABS: ALPHA FETOPROTEIN TUMOR QUANT 5.3 NG/ML (<8.1)
[2017-07-27 08:10] LABS: ALPHA 2-MACROGLOBULIN 508 mg/dL (110-276); ALT 24 IU/L (0-55); APOLIPOPROTEIN A-1 121 mg/dL (101-178); GGT 20 IU/L (0-65); HAPTOGLOBIN 185 mg/dL (34-200); NECROINFLAM SCORE 0.18 (0.00-0.17); NECROINFLAMM GRADE A0-A1 (.); TOTAL BILIRUBIN 0.3 mg/dL (0.0-1.2)
== END ==
LOC: M SFHCPLAZ 13:26
DX: B18.2 Chronic viral hepatitis C (principal)
CPT/HCPCS: 82247; 84460

== ENCOUNTER → 2017-07-28 | Outpatient (CLI) | payer MEDICARE, MEDICAID | LOC: M RAD 08:05 | DX: B18.2 Chronic viral hepatitis C (principal); K76.0 Fatty (change of) liver, not elsewhere classified; Z98.890 Other specified postprocedural states | CPT/HCPCS: 76705 ==

== ENCOUNTER → 2017-09-13 | Outpatient (REF) | payer MEDICARE, MEDICAID ==
[2017-09-13 21:39] LABS: ESTIMATED AVERAGE GLUCOSE 171 MG/DL (60-110); HEMOGLOBIN A1c 7.6 %
== END ==
LOC: M SFHCLERA 15:35
DX: E11.40 Type 2 diabetes mellitus with diabetic neuropathy, unspecified (principal)
CPT/HCPCS: 83036

== ENCOUNTER 2018-01-04 18:02 | Observation (INO) | payer MEDICARE, MEDICAID ==
[2018-01-04 18:22] LABS: BASO # 0.1 10^3/uL (0.0-0.2); BASO % 1.5 % (0.0-1.0); EOS # 0.5 10^3/uL (0.0-0.50); EOS % 7.3 % (0.0-3.0); HEMATOCRIT 44.9 % (42.0-52.0); HEMOGLOBIN 15.5 g/dl (13.5-17.5); IMMATURE GRANULOCYTE % 0.4 % (0-3.0); LYMPH # 2.5 10^3/uL (1.5-4.5); MEAN CORPUSCULAR HEMOGLOBIN 29.6 pg (27.0-33.0); MEAN CORPUSCULAR HGB CONC 34.5 g/dl (32.0-36.5); MEAN CORPUSCULAR VOLUME 85.9 fl (80.0-96.0); MONO # 0.6 10^3/uL (0.0-0.8); MONO % 8.5 % (0.0-5.0); NEUTROPHILS # 3.2 10^3/uL (1.8-7.7); NEUTROPHILS % 46.3 % (36.0-66.0); PLATELET COUNT, AUTOMATED 226 10^3/uL (150-450); RED BLOOD COUNT 5.23 10^6/uL (4.30-6.10); WHITE BLOOD COUNT 6.8 10^3/uL (4.0-10.0)
[2018-01-04 18:23] LABS: VENOUS BASE EXCESS -0.6 (-2.0-2.0); VENOUS HCO3 27.5 MEQ/L (23.0-27.0); VENOUS O2 SATURATION 56.4 % (60.0-80.0); VENOUS PARTIAL PRESSURE CO2 58.8 mmHg (38.0-50.0); VENOUS PARTIAL PRESSURE O2 30.4 mmHg (30.0-50.0); VENOUS PH 7.288 UNITS (7.330-7.430); VENOUS STANDARD HCO3 22.9 MEQ/L; VENOUS TOTAL CO2 29.3 MEQ/L (24.0-28.0)
[2018-01-04 18:38] LABS: INR 1.01; PROTHROMBIN TIME 13.4 SECONDS (12.4-14.5)
[2018-01-04 18:45] LABS: ANION GAP 8 MEQ/L (8-16); BLOOD UREA NITROGEN 26 MG/DL (7-18); CALCIUM LEVEL 9.2 MG/DL (8.8-10.2); CARBON DIOXIDE LEVEL 30 MEQ/L (21-32); CHLORIDE LEVEL 100 MEQ/L (98-107); CPK CREATINE PHOSPHOKINASE 134 U/L (39-308); CREATININE FOR GFR 2.25 MG/DL (0.70-1.30); FREE T4 0.95 NG/DL (0.76-1.46); GLOMERULAR FILTRATION RATE 30.3 (>42); GLUCOSE, FASTING 132 MG/DL (70-100); MAGNESIUM LEVEL 2.5 MG/DL (1.8-2.4); POTASSIUM SERUM 4.5 MEQ/L (3.5-5.1); SODIUM LEVEL 138 MEQ/L (136-145); TROPONIN I 0.02 NG/ML (< 0.10)
[2018-01-04 18:51] LABS: CK-MB VALUE MASS 2.4 NG/ML (<3.6); MB/CK RELATIVE INDEX 1.79 (< OR =4)
[2018-01-04 19:15] LABS: LACTIC ACID SEPSIS PROTOCOL 1.2 MMOL/L (0.4-2.0)
[2018-01-04] MEDS: **hydrALAZINE HCL** 25 MG TAB PO ×2 (21:00)
[2018-01-04 22:59] LABS: CK-MB VALUE MASS 2.4 NG/ML (<3.6); CPK CREATINE PHOSPHOKINASE 125 U/L (39-308); MB/CK RELATIVE INDEX 1.92 (< OR =4); TROPONIN I < 0.02 NG/ML (< 0.10)
[2018-01-05] MEDS: LEVEMIR (INSULIN DETEMIR) 1 UNITS/0.01ML SC ×6 (02:23→21:02)
[2018-01-05] MEDS ORDERED: DEXTROSE 50% 50 ML SYRINGE IV ×2 (02:30)
[2018-01-05] MEDS ORDERED: GLUCOSE 4 GM CHEW TABLET PO ×2 (02:30)
[2018-01-05] MEDS ORDERED: GLUCAGON FOR INJ 1 MG VIAL (J1610) SC ×2 (02:30)
[2018-01-05] MEDS: GABAPENTIN 300 MG CAP PO ×8 (02:31→21:01)
[2018-01-05] MEDS: NS 0.45% 1,000 ML IV ×2 (02:32)
[2018-01-05] MEDS: ASPIRIN ENTERIC 325 MG TAB PO ×4 (02:33→21:01)
[2018-01-05] MEDS: CARVedilol 6.25 MG TAB PO ×6 (02:39→21:01)
[2018-01-05 03:44] LABS: APPEARANCE, URINE CLEAR (CLEAR); BACTERIA, URINE AUTO NEGATIVE (NEGATIVE); BILIRUBIN, URINE AUTO NEGATIVE (NEGATIVE); BLOOD, URINE BLOOD NEGATIVE (NEGATIVE); COLOR, URINE YELLOW (YELLOW); GLUCOSE, URINE (UA) AUTO 1+ mg/dL (NEGATIVE); KETONE, URINE AUTO NEGATIVE (NEGATIVE); LEUKOCYTE ESTERASE, URINE AUTO NEGATIVE (NEGATIVE); NITRITE, URINE AUTO NEGATIVE (NEGATIVE); PROTEIN, URINE AUTO NEGATIVE (NEGATIVE); RBC, URINE AUTO 1 /HPF (0-3); SQUAMOUS EPITHELIAL CELL UR AU 0 /HPF (0-6); UROBILINOGEN, URINE AUTO 0.2 mg/dL (0.0-2.0); WBC, URINE AUTO 0 /HPF (0-3)
[2018-01-05 04:01] LABS: CPK CREATINE PHOSPHOKINASE 102 U/L (39-308)
[2018-01-05 04:02] LABS: SODIUM,RANDOM URINE 47 MEQ/L
[2018-01-05] MEDS: LEVOTHYROXINE 25MCG TABLET (0.025MG) PO ×2 (06:20)
[2018-01-05 07:34] LABS: BEDSIDE GLUCOSE 211 MG/DL (83-110)
[2018-01-05 08:11] LABS: BASO # 0.1 10^3/uL (0.0-0.2); BASO % 1.4 % (0.0-1.0); EOS # 0.4 10^3/uL (0.0-0.50); EOS % 5.7 % (0.0-3.0); HEMATOCRIT 42.1 % (42.0-52.0); HEMOGLOBIN 14.7 g/dl (13.5-17.5); IMMATURE GRANULOCYTE % 0.1 % (0-3.0); LYMPH # 2.5 10^3/uL (1.5-4.5); LYMPH % 34.2 % (24.0-44.0); MEAN CORPUSCULAR HEMOGLOBIN 29.6 pg (27.0-33.0); MEAN CORPUSCULAR HGB CONC 34.9 g/dl (32.0-36.5); MEAN CORPUSCULAR VOLUME 84.7 fl (80.0-96.0); MONO # 0.6 10^3/uL (0.0-0.8); MONO % 8.9 % (0.0-5.0); NEUTROPHILS # 3.6 10^3/uL (1.8-7.7); NEUTROPHILS % 49.7 % (36.0-66.0); PLATELET COUNT, AUTOMATED 199 10^3/uL (150-450); RED BLOOD COUNT 4.97 10^6/uL (4.30-6.10); RED CELL DISTRIBUTION WIDTH 13.1 % (11.5-14.5); WHITE BLOOD COUNT 7.2 10^3/uL (4.0-10.0)
[2018-01-05] MEDS: **hydrALAZINE HCL** 25 MG TAB PO ×8 (08:14→21:01)
[2018-01-05] MEDS: HEPARIN SOD (PORCINE) 5000 UNITS/ML VIAL SC ×4 (08:15→21:00)
[2018-01-05] MEDS: ISOSORBIDE MON. (IMDUR) 60 MG XR TAB PO ×2 (08:15)
[2018-01-05] MEDS: HumaLOG INSULIN (NovoLOG) PER UNIT SC ×6 (08:15→16:59)
[2018-01-05 08:28] LABS: ANION GAP 9 MEQ/L (8-16); BLOOD UREA NITROGEN 21 MG/DL (7-18); CALCIUM LEVEL 8.5 MG/DL (8.8-10.2); CARBON DIOXIDE LEVEL 26 MEQ/L (21-32); CHLORIDE LEVEL 104 MEQ/L (98-107); CREATININE FOR GFR 1.78 MG/DL (0.70-1.30); GLOMERULAR FILTRATION RATE 39.8 (>42); GLUCOSE, FASTING 194 MG/DL (70-100); POTASSIUM SERUM 4.2 MEQ/L (3.5-5.1); SODIUM LEVEL 139 MEQ/L (136-145)
[2018-01-05 08:41] LABS: BEDSIDE GLUCOSE 145 MG/DL (83-110)
[2018-01-05] MEDS: RANOLAZINE 500 MG ER TAB PO ×2 (09:00)
[2018-01-05] MEDS: LACTIC ACID 12% LOTION 225 GM BTL TOP ×2 (11:40)
[2018-01-05 12:08] LABS: BEDSIDE GLUCOSE 281 MG/DL (83-110)
[2018-01-05 16:58] LABS: BEDSIDE GLUCOSE 217 MG/DL (83-110)
[2018-01-05 20:57] LABS: BEDSIDE GLUCOSE 294 MG/DL (83-110)
[2018-01-06] MEDS: LEVOTHYROXINE 25MCG TABLET (0.025MG) PO ×2 (05:26)
[2018-01-06 07:02] LABS: BASO # 0.1 10^3/uL (0.0-0.2); BASO % 1.4 % (0.0-1.0); EOS # 0.5 10^3/uL (0.0-0.50); EOS % 5.5 % (0.0-3.0); HEMATOCRIT 45.9 % (42.0-52.0); HEMOGLOBIN 15.7 g/dl (13.5-17.5); IMMATURE GRANULOCYTE % 0.2 % (0-3.0); LYMPH # 3.1 10^3/uL (1.5-4.5); LYMPH % 36.7 % (24.0-44.0); MEAN CORPUSCULAR HEMOGLOBIN 29.3 pg (27.0-33.0); MEAN CORPUSCULAR HGB CONC 34.2 g/dl (32.0-36.5); MEAN CORPUSCULAR VOLUME 85.6 fl (80.0-96.0); MONO # 0.8 10^3/uL (0.0-0.8); MONO % 9.6 % (0.0-5.0); NEUTROPHILS % 46.6 % (36.0-66.0); PLATELET COUNT, AUTOMATED 228 10^3/uL (150-450); RED BLOOD COUNT 5.36 10^6/uL (4.30-6.10); RED CELL DISTRIBUTION WIDTH 13.1 % (11.5-14.5); WHITE BLOOD COUNT 8.5 10^3/uL (4.0-10.0)
[2018-01-06 07:28] LABS: ANION GAP 7 MEQ/L (8-16); BLOOD UREA NITROGEN 25 MG/DL (7-18); CARBON DIOXIDE LEVEL 28 MEQ/L (21-32); CHLORIDE LEVEL 106 MEQ/L (98-107); CREATININE FOR GFR 1.97 MG/DL (0.70-1.30); GLOMERULAR FILTRATION RATE 35.3 (>42); GLUCOSE, FASTING 79 MG/DL (70-100); POTASSIUM SERUM 4.8 MEQ/L (3.5-5.1); SODIUM LEVEL 141 MEQ/L (136-145)
[2018-01-06] MEDS: HumaLOG INSULIN (NovoLOG) PER UNIT SC ×6 (07:30→17:48)
[2018-01-06] MEDS: **hydrALAZINE HCL** 25 MG TAB PO ×6 (09:14→21:15)
[2018-01-06] MEDS: RANOLAZINE 500 MG ER TAB PO ×2 (09:14)
[2018-01-06] MEDS: GABAPENTIN 300 MG CAP PO ×6 (09:14→21:14)
[2018-01-06] MEDS: ISOSORBIDE MON. (IMDUR) 60 MG XR TAB PO ×2 (09:14)
[2018-01-06] MEDS: CARVedilol 6.25 MG TAB PO ×4 (09:14→21:15)
[2018-01-06] MEDS: LEVEMIR (INSULIN DETEMIR) 1 UNITS/0.01ML SC ×4 (09:15→21:14)
[2018-01-06] MEDS: HEPARIN SOD (PORCINE) 5000 UNITS/ML VIAL SC ×4 (09:15→21:13)
[2018-01-06] MEDS: LACTIC ACID 12% LOTION 225 GM BTL TOP ×2 (09:16)
[2018-01-06 11:46] LABS: BEDSIDE GLUCOSE 204 MG/DL (83-110)
[2018-01-06 17:06] LABS: BEDSIDE GLUCOSE 245 MG/DL (83-110)
[2018-01-06 20:45] LABS: BEDSIDE GLUCOSE 200 MG/DL (83-110)
[2018-01-06] MEDS: ASPIRIN ENTERIC 325 MG TAB PO ×2 (21:15)
[2018-01-07] MEDS: LEVOTHYROXINE 25MCG TABLET (0.025MG) PO ×2 (05:13)
[2018-01-07 07:07] LABS: BASO # 0.1 10^3/uL (0.0-0.2); BASO % 1.6 % (0.0-1.0); EOS # 0.5 10^3/uL (0.0-0.50); EOS % 6.1 % (0.0-3.0); HEMATOCRIT 42.3 % (42.0-52.0); HEMOGLOBIN 14.8 g/dl (13.5-17.5); IMMATURE GRANULOCYTE % 0.1 % (0-3.0); LYMPH % 38.9 % (24.0-44.0); MEAN CORPUSCULAR HEMOGLOBIN 29.5 pg (27.0-33.0); MEAN CORPUSCULAR VOLUME 84.4 fl (80.0-96.0); MONO # 0.7 10^3/uL (0.0-0.8); MONO % 8.6 % (0.0-5.0); NEUTROPHILS # 3.4 10^3/uL (1.8-7.7); NEUTROPHILS % 44.7 % (36.0-66.0); PLATELET COUNT, AUTOMATED 213 10^3/uL (150-450); RED BLOOD COUNT 5.01 10^6/uL (4.30-6.10); WHITE BLOOD COUNT 7.6 10^3/uL (4.0-10.0)
[2018-01-07 07:26] LABS: ANION GAP 8 MEQ/L (8-16); BLOOD UREA NITROGEN 29 MG/DL (7-18); CALCIUM LEVEL 8.6 MG/DL (8.8-10.2); CARBON DIOXIDE LEVEL 26 MEQ/L (21-32); CHLORIDE LEVEL 106 MEQ/L (98-107); CREATININE FOR GFR 1.83 MG/DL (0.70-1.30); GLOMERULAR FILTRATION RATE 38.4 (>42); GLUCOSE, FASTING 82 MG/DL (70-100); POTASSIUM SERUM 4.3 MEQ/L (3.5-5.1); SODIUM LEVEL 140 MEQ/L (136-145)
[2018-01-07] MEDS: HumaLOG INSULIN (NovoLOG) PER UNIT SC ×4 (07:30→12:38)
[2018-01-07] MEDS: LACTIC ACID 12% LOTION 225 GM BTL TOP ×2 (09:00)
[2018-01-07] MEDS: GABAPENTIN 300 MG CAP PO ×2 (09:24)
[2018-01-07] MEDS: ISOSORBIDE MON. (IMDUR) 60 MG XR TAB PO ×2 (09:24)
[2018-01-07] MEDS: CARVedilol 6.25 MG TAB PO ×2 (09:24)
[2018-01-07] MEDS: **hydrALAZINE HCL** 25 MG TAB PO ×2 (09:25)
[2018-01-07] MEDS: HEPARIN SOD (PORCINE) 5000 UNITS/ML VIAL SC ×2 (09:28)
[2018-01-07] MEDS: LEVEMIR (INSULIN DETEMIR) 1 UNITS/0.01ML SC ×2 (09:28)
[2018-01-07] MEDS: RANOLAZINE 500 MG ER TAB PO ×2 (10:41)
[2018-01-07 12:30] LABS: BEDSIDE GLUCOSE 163 MG/DL (83-110)
== END 2018-01-07 13:38 | disposition home or self-care (01) ==
LOC: M ED 01-05 01:52 → M ED INP 01-05 17:26 → M ED 18:02 → M ED INP 18:03 → M MS5PR 01-05 17:26
DX: N17.9 Acute kidney failure, unspecified (principal); I95.1 Orthostatic hypotension; E86.0 Dehydration; E11.21 Type 2 diabetes mellitus with diabetic nephropathy; R55 Syncope and collapse; G90.9 Disorder of the autonomic nervous system, unspecified; Z79.4 Long term (current) use of insulin; N18.3 Chronic kidney disease, stage 3 (moderate); I50.32 Chronic diastolic (congestive) heart failure; I11.9 Hypertensive heart disease without heart failure; I25.10 Atherosclerotic heart disease of native coronary artery without angina pectoris; E03.9 Hypothyroidism, unspecified; Z95.1 Presence of aortocoronary bypass graft; E78.4 Other hyperlipidemia; G31.84 Mild cognitive impairment of uncertain or unknown etiology; Z79.82 Long term (current) use of aspirin
CPT/HCPCS: 71045

== ENCOUNTER → 2018-01-24 | Outpatient (REF) | payer MEDICARE, MEDICAID ==
[2018-01-24 17:14] LABS: ANION GAP 8 MEQ/L (8-16); BLOOD UREA NITROGEN 20 MG/DL (7-18); CALCIUM LEVEL 9.3 MG/DL (8.8-10.2); CARBON DIOXIDE LEVEL 28 MEQ/L (21-32); CHLORIDE LEVEL 102 MEQ/L (98-107); CREATININE FOR GFR 1.69 MG/DL (0.70-1.30); GLOMERULAR FILTRATION RATE 42.1 (>42); GLUCOSE, FASTING 152 MG/DL (70-100); SODIUM LEVEL 138 MEQ/L (136-145)
[2018-01-24 17:24] LABS: POTASSIUM SERUM 5.2 MEQ/L (3.5-5.1)
== END ==
LOC: M SFHCLERA 11:44
DX: N18.3 Chronic kidney disease, stage 3 (moderate) (principal)
CPT/HCPCS: 80048

== ENCOUNTER → 2018-02-01 | Outpatient (REF) | payer MEDICARE, MEDICAID | LOC: M SFHCLERA 11:36 | DX: E03.9 Hypothyroidism, unspecified (principal) | CPT/HCPCS: 84443 ==